=== PATIENT | male | born 1990 | race Caucasian/White ===

== ENCOUNTER 2019-09-29 19:33 | Emergency (ER) | payer BC, SELFPAY ==
[2019-09-29 19:38] VITALS: BP 152/93; PULSE 62; RESP 18; TEMP 36.7; O2SAT 100
--- NOTE | 2019-09-29 20:04 | W.ED.GENAD ---
Discharge Plan Disposition Patient Disposition: HOME Condition: Good Discharge Details Chief Complaint: Orthopedic Clinical Impression: Crushing injury of finger of right hand, Open fracture of tuft of distal phalanx of finger Primary Care Provider: Yanira Lopez ED Provider: Doron Darnell [place] Meds and New Rx's Prescriptions: New cephalexin 500 mg tablet 500 mg PO Q8H Qty: 10 RF: 0 Continued diphenhydramine HCl 25 MG/10 ML elixir 3 PO RF: 0 epinephrine [EpiPen 2-Ashutosh] 0.3 MG/0.3 ML auto-injector 0.3 mg IJ PRN PRN (Reason: Allergy Symptoms) Qty: 1 RF: 0 Discharge Instructions Additional Instructions: Leave this dressing in place for 24 hours. May remove and then begin cleaning with soap and water gently. Redress and keep covered until healed. Take antibiotic as directed. Watch for signs of infection which include increased pain, swelling, redness, drainage. Return to ED if signs of infection. Otherwise, return to ED in 10 to 14 days for suture removal. Referrals: [facility] [Provider Group] Medical Decision Making Patient with right long finger injury, crush in nature. Has laceration injury right at nailbed cuticle area. Nail proximally is intact. Initial inspection suggest leaving nail in place is appropriate. However, will obtain x-rays and perform digital block with bupivacaine to get better inspection of the injury. X-ray reveals a distal tuft fracture only. Digital block worked well. Wound irrigated. Small piece of skin pulled out of nailbed lack and clipped off. Edge of nail on ulnar side slipped back under the cuticle. One 4-0 nylon suture placed through the nail and then skin of finger. This pulled the entire nail and nailbed and cuticle together with 1 stitch. Xeroform dressing applied. Tetanus updated. Cephalexin started. Wound instructions given. Return for signs of infection. Otherwise, return in 10 to 14 days for suture removal. HPI General Mode of arrival: ambulatory. Date/Time Provider Initiated Documentation: 09/29/19 20:04. Limitations to Documentation: no limitations. Information obtained by: patient and RN notes reviewed. HPI Narrative: Patient presents to ED with right middle finger injury. He was putting in tents stakes when his middle finger was smashed with a sledgehammer against a stake. wrapped it up and patient came in for evaluation. Denies any other injury. He is right-hand dominant. Unsure of last tetanus. Related Data Home Medications Medication Instructions Recorded Confirmed diphenhydramine HCl 3 PO 09/18/13 09/18/13 epinephrine [EpiPen 2-Ashutosh] 0.3 mg IJ PRN PRN #1 ml 09/18/13 cephalexin 500 mg PO Q8H #10 tab 09/29/19 Previous Rx's Medication Instructions Recorded epinephrine [EpiPen 2-Ashutosh] 0.3 mg IJ PRN PRN #1 ml 09/18/13 cephalexin 500 mg PO Q8H #10 tab 09/29/19 Allergies Allergy/AdvReac Type Severity Reaction Status Date / Time tree nut Allergy Severe Anaphylaxsi Unverified 09/29/19 19:41 s Bees Allergy Unknown Uncoded 09/29/19 19:41 Cashews Allergy Unknown Uncoded 09/29/19 19:41 Pistachios Allergy Unknown Uncoded 09/29/19 19:41 General Stated Complaint: Orthopedic ASHANTI: 4 Review of Systems Constitutional Constitutional: Denies fever(s) Cardiovascular Cardiovascular: Denies dyspnea Respiratory Respiratory: Denies cough and Denies dyspnea Musculoskeletal Musculoskeletal: Denies deformity, Denies numbness and Denies tingling Integumentary/Breasts Skin/Breast: Reports wounds Neurologic Neurologic: Denies numbness and Denies tingling [facility] Medical History (Updated 09/29/19 @ 21:24 by Doron Darnell MD) IBS (irritable bowel syndrome) (Chronic) Pruritus ani (Acute) Skin lesion (Acute) Surgical History No significant past surgical history (Acute) Family History (Updated 11/03/17 @ 11:15 by Carlene Anderson) Mother No problems noted. Father No problems noted. Maternal Grandfather Hypertension Diabetes Paternal Grandfather Coronary heart disease Prostate cancer Social History Smoking/Tobacco Use Status: Never Alcohol Intake: current Alcohol Intake frequency: a few times a week Alcohol type: hard liquor Drug use: Never current occupation: [employer] Do you feel safe at home: Yes Do you feel safe in your relationship?: Yes Exam Const General: cooperative, comfortable and no acute distress Orientation: alert and oriented x3 HENMT Head: normocephalic and atraumatic Resp Effort & Inspection: normal respiratory effort Skin Trauma: laceration (at cuticle/nailbed on R long finger) Nails: other (Nail attached distally nailbed/nail disrupted proximally right at cuticle) Extrem Right upper extremity: hand Details: neuromotor exam normal, neurosensory exam normal, tendon exam normal, tenderness Location: of the 3rd digit, laceration and ecchymosis Location: of the 3rd digit Course Vital Signs Vital signs: Vital Signs Temperature 98.1 F 09/29/19 19:38 Pulse 62 09/29/19 19:38 Respiratory Rate 18 09/29/19 19:38 Blood Pressure 152/93 H 09/29/19 19:38 Pulse Oximetry 100 09/29/19 19:38 Temperature 98.1 F 09/29/19 19:38 Temperature Source Tympanic 09/29/19 19:38 Pulse 62 09/29/19 19:38 Respiratory Rate 18 09/29/19 19:38 Respiratory Effort 09/29/19 19:42 Blood Pressure 152/93 H 09/29/19 19:38 Pulse Oximetry 100 09/29/19 19:38 Oxygen Delivery Method Room Air 09/29/19 19:38 Oxygen Flow Rate 0 09/29/19 19:38 Pain Level 4 09/29/19 19:38 Procedures Laceration Laceration 1: Site: hand Side (If applicable): right Size (cm): 1 Description: linear Depth: simple, single layer Pre-repair: wound explored and irrigated extensively Skin layer closed with: nylon Size (cm): 4-0 Number of sutures: 1 Technique: simple, interrupted Nerve Block Nerve Block 1: Time out performed: Yes Local Anesthetic: Bupivicaine 0.5% Side: right Nerve Blocks: digital Procedure Successful: Yes Patient Tolerated Procedure: well Complications: none
--- NOTE | 2019-09-29 20:37 | DI.RAD_ITS ---
EXAM: XR FINGER RT MIDDLE CLINICAL HISTORY: trauma TECHNIQUE: 2D digital imaging was performed. COMPARISON: No exams were available for comparison FINDINGS: There is a nondisplaced fracture of the tuft of the distal phalanx of the middle finger. No addition al fractures are seen. There is no evidence of dislocation. No foreign body is seen. IMPRESSION: Fracture of the tuft of the distal phalanx of the 3rd finger.
--- NOTE | 2019-09-29 20:45 | DI.VRAD_ITS ---
PROCEDURE INFORMATION: Exam: XR Right Finger(s) Exam date and time: 09/29/2019 8:34 PM Age: 28 years old Clinical indication: Injury or trauma; Injury history: Sledgehammer; Initial encounter; Blunt trauma (contusions or hematomas; Right; Middle finger; Injury date: 09/29/19 TECHNIQUE: Imaging protocol: XR Right fingers. Views: Minimum 2 views. COMPARISON: No relevant prior studies available. FINDINGS: Bones/joints: Avulsion fracture, tuft of the 3rd distal phalanx. No subluxation. Benign-appearing lucency head of 3rd metacarpal. Soft tissues: Soft tissue swelling about the fracture. IMPRESSION: Fracture 3rd distal phalanx. Dictated and Authenticated by: Robert Anderson MD. Ordering:ALBERTO Sal MD
== END 2019-09-29 21:30 | disposition home or self-care (01) ==
PROVIDERS: Emergency Provider Emergency Medicine; PCP Naturopath
DX: S67.191A Crushing injury of left index finger, initial encounter (principal); S62.632B Displaced fracture of distal phalanx of right middle finger, initial encounter for open fracture; W27.8XXA Contact with other nonpowered hand tool, initial encounter
CPT/HCPCS: 12001; 26750; 90471; 73140

== ENCOUNTER 2019-10-11 16:35 | Emergency (ER) | payer BC, SELFPAY ==
[2019-10-11 16:40] VITALS: BP 131/64; PULSE 66; RESP 16; TEMP 36.6; O2SAT 98
--- NOTE | 2019-10-11 16:53 | ED.GENADUL_ITS ---
Discharge Plan Disposition Patient Disposition: HOME Condition: Stable Discharge Details Chief Complaint: Recheck Clinical Impression: Visit for suture removal Primary Care Provider: Yanira Lopez ED Provider: Ella Ndiaye Home Meds and New Rx's Prescriptions: Continued diphenhydramine HCl 25 MG/10 ML elixir 3 PO RF: 0 epinephrine [EpiPen 2-Ashutosh] 0.3 MG/0.3 ML auto-injector 0.3 mg IJ PRN PRN (Reason: Allergy Symptoms) Qty: 1 RF: 0 cephalexin 500 mg tablet 500 mg PO Q8H Qty: 10 RF: 0 Discharge Instructions Instructions: Stitches Removal (ED) Additional Instructions: Keep wound clean and dry. Cover wound with bandage if risk of contamination. Otherwise you can keep the wound open to air if resting at home to allow edges to dry and heal. Follow-up with your primary care doctor in 1 week. Return to the emergency department with any worsening or new concerning symptoms. Discharge Data Discharge Date/Time-TO BE ENTERED AT DEPARTURE: 10/11/19 17:00 Discharge Physician: Ella Ndiaye Medical Decision Making 28-year-old male presents for suture removal of right third finger placed 12 days ago when pinched while placing a stake in the ground while pitching a tent. Wound appears to be healing well. There is a dried bloody crust around wound but suture noted in place. Suture removed by nurse at bedside. Wound dressed and a finger splint placed per patient request. Patient advised on proper wound care. Advised to follow up with the primary care doctor for re-evaluation. Usual and customary return precautions given prior to discharge. Medical Records Medical records reviewed: Yes I reviewed the patient's medical records. HPI General Mode of arrival: ambulatory . Date/Time Provider Initiated Documentation: 10/11/19 16:45 . Limitations to Documentation: no limitations . Information obtained by: patient . HPI Narrative: Patient is a 28-year-old male who presents to the ED for suture removal of right third finger with 1 suture placed 12 days ago after pinched while placing a stake in the ground while pitching a tent. Related Data Home Medications Medication Instructions Recorded Confirmed diphenhydramine HCl 3 PO 09/18/13 09/18/13 epinephrine [EpiPen 2-Ashutosh] 0.3 mg IJ PRN PRN #1 ml 09/18/13 cephalexin 500 mg PO Q8H #10 tab 09/29/19 Previous Rx's Medication Instructions Recorded epinephrine [EpiPen 2-Ashutosh] 0.3 mg IJ PRN PRN #1 ml 09/18/13 cephalexin 500 mg PO Q8H #10 tab 09/29/19 Allergies Allergy/AdvReac Type Severity Reaction Status Date / Time tree nut Allergy Severe Anaphylaxsi Unverified 09/29/19 19:41 s Bees Allergy Unknown Uncoded 09/29/19 19:41 Cashews Allergy Unknown Uncoded 09/29/19 19:41 Pistachios Allergy Unknown Uncoded 09/29/19 19:41 General Stated Complaint: Recheck ASHANTI: 4 Review of Systems All systems reviewed & are unremarkable except as noted in HPI and below PFSH Medical History (Updated 10/11/19 @ 16:54 by Ella Ndiaye DO) IBS (irritable bowel syndrome) (Chronic) Pruritus ani (Acute) Skin lesion (Acute) Surgical History No significant past surgical history (Acute) Family History (Updated 11/03/17 @ 11:15 by Carlene Anderson) Mother No problems noted. Father No problems noted. Maternal Grandfather Hypertension Diabetes Paternal Grandfather Coronary heart disease Prostate cancer Social History Smoking/Tobacco Use Status: Never Alcohol Intake: current Alcohol Intake frequency: a few times a week Alcohol type: hard liquor Drug use: Never current occupation: [employer] Do you feel safe at home: Yes Do you feel safe in your relationship?: Yes Exam Const General: cooperative, healthy appearing and no acute distress HENMT Head: normal to inspection Mouth: oral mucosae normal Eyes General: appearance normal, both eyes and all related structures Neck Neck: normal visual inspection Resp Effort & Inspection: normal respiratory effort and able to speak in complete sentences Cardio Rate: regular rate Skin General skin exam: no rashes or lesions noted Neuro General: patient alert, patient awake and patient oriented x3 Motor: muscle tone normal throughout Extrem Right upper extremity: hand (1 stitch noted within the nail bed and distal volar third finger.) Other: There is surrounding bloody crust but no erythema, edema, ecchymosis, drainage or bleeding. Psych Appearance: grossly normal Affect: normal affect Course Vital Signs Vital signs: Vital Signs Temperature 97.9 F 10/11/19 16:40 Pulse 66 10/11/19 16:40 Respiratory Rate 16 10/11/19 16:40 Blood Pressure 131/64 10/11/19 16:40 Pulse Oximetry 98 10/11/19 16:40 Temperature 97.9 F 10/11/19 16:40 Temperature Source Tympanic 10/11/19 16:40 Pulse 66 10/11/19 16:40 Respiratory Rate 16 10/11/19 16:40 Respiratory Effort Non-Labored 10/11/19 16:47 Blood Pressure 131/64 10/11/19 16:40 Blood Pressure Position Sitting 10/11/19 16:40 Pulse Oximetry 98 10/11/19 16:40 Oxygen Delivery Method Room Air 10/11/19 16:40 Oxygen Flow Rate 0 10/11/19 16:40 Pain Level 0 10/11/19 16:40
== END 2019-10-11 17:00 | disposition home or self-care (01) ==
PROVIDERS: Emergency Provider Physician Assistant; PCP Naturopath
DX: S67.191D Crushing injury of left index finger, subsequent encounter (principal); W27.8XXD Contact with other nonpowered hand tool, subsequent encounter; Z48.02 Encounter for removal of sutures